=== PATIENT | female | born 1965 | race Caucasian/White ===

== ENCOUNTER 2020-10-22 10:00 | Outpatient (CLI) | payer OTHER ==
[~2020-10-22 10:00] MED LIST: ESTR1TAB15 PO; LEVO88TA2 PO; LISI-170 PO
== END 2020-10-22 23:59 | disposition home or self-care (01) ==
LOC: RAD 10:00
PROVIDERS: ATTEND Internal Medicine Hematology & Oncology
DX: R76.12 Nonspecific reaction to cell mediated immunity measurement of gamma interferon antigen response without active tuberculosis (principal)
CPT/HCPCS: 71045